=== PATIENT | female | born 1970 | race Caucasian/White ===

== ENCOUNTER → 2017-09-04 | Outpatient (CLI) | payer BC, OTHER ==
[~2017-09-04] MED LIST: CHON400C PO; CYCL1DRO OP; FEXO-142 PO; OMG1KC PO
--- NOTE | 2017-09-04 16:33 | Diagnostic Imaging Report ---
INDICATION: Pelvic pain and irregular menses. TECHNIQUE: Transabdominal and transvaginal pelvic sonography was performed. FINDINGS: The uterus measures 7.3 x 5.6 x 3.6 cm. The endometrium is 7 mm in thickness. No myometrial mass is identified. The ovaries are not visualized due to overlying bowel gas. No adnexal mass or free fluid is seen. IMPRESSION: Nonvisualized ovaries. The study is otherwise unremarkable. Dictated by: Dictated on workstation # [id number]
== END ==
LOC: RAD 15:51
PROVIDERS: ATTEND Nurse Practitioner
DX: N92.6 Irregular menstruation, unspecified (principal)
CPT/HCPCS: 76830; 76856

== ENCOUNTER 2018-08-20 06:20 | Outpatient (CLI) | payer BC ==
[~2018-08-20] VITALS: Ht 185.4 cm; Wt 113.4 kg
[2018-08-20] MEDS ORDERED: ZOLP6.252 PO (12:52)
[2018-08-20] MEDS ORDERED: OMG1KC PO (12:52)
[2018-08-20] MEDS ORDERED: FEXO1TAB40 PO (12:52)
[2018-08-20] MEDS ORDERED: BUPR-168 PO (12:52)
[2018-08-20] MEDS ORDERED: CART1TAB5 PO (12:52)
== END 2018-08-20 12:56 | disposition home or self-care (01) ==
LOC: PREOP 06:20
PROVIDERS: ATTEND Podiatrist Foot Surgery
DX: Z01.818 Encounter for other preprocedural examination (principal)

== ENCOUNTER 2018-08-23 05:50 | Day surgery (SDC) | payer BC ==
[~2018-08-23] VITALS: Ht 185.4 cm; Wt 113.4 kg
[~2018-08-23 05:50] MED LIST changes: +BUPR-168 PO; +CART1TAB5 PO; +FEXO1TAB40 PO; +ZOLP6.252 PO
[2018-08-23] MEDS ORDERED: LACTATED RINGERS 1,000 ML IV PRN (06:18)
[2018-08-23] MEDS ORDERED: ceFAZolin INJECTION 1,000 MG in NS (IVPB) 50 ML IV ONE (06:30)
[2018-08-23 06:50] VITALS: BP 118/85
[2018-08-23] MEDS ORDERED: fentaNYL INJECTION 100 MCG/2 ML AMP ONE (06:54)
[2018-08-23] MEDS ORDERED: MIDAZOLAM 2 MG/2 ML (VERSED) VIAL ONE (06:54)
[2018-08-23] MEDS ORDERED: BUPIVACAINE 0.25% 30 ML (SENSORCAINE) VIAL ONE (07:17)
[2018-08-23] MEDS ORDERED: MEPIVACAINE (CARBOCAINE) 2% 50 ML VIAL ONE (07:17)
--- NOTE | 2018-08-23 07:33 | Progress Note-Pre Operative ---
Pre-Operative Progress Note H&P Reviewed The H&P was reviewed, patient examined and no changes noted. Date Seen by Provider: Aug 23, 2018 Time Seen by Provider: 07:30 Date H&P Reviewed: Aug 23, 2018 Time H&P Reviewed: 07:31 Pre-Operative Diagnosis: plantar fascoitis right foot SAMIR JARRELL DPPiedad Aug 23, 2018 07:33
[2018-08-23] MEDS ORDERED: ceFAZolin INJECTION 1,000 MG ONE (07:44)
[2018-08-23] MEDS ORDERED: proPOfol 200 MG/20 ML (DIPRIVAN) VIAL IV ONE (07:53)
[2018-08-23] MEDS ORDERED: SEVOFLURANE (ULTANE) 15 ML INHAL SOLN ONE ×3 (07:53→08:45)
[2018-08-23] MEDS ORDERED: LIDOCAINE PF 2% 5 ML (XYLOCAINE) VIAL ONE (07:53)
[2018-08-23] MEDS ORDERED: ONDANSETRON 4 MG/2 ML (SDV) Z0FRAN ONE (07:53)
[2018-08-23] MEDS ORDERED: DEXAMETHASONE 10 MG/ML (DECADRON) 1 ML VIAL ONE (08:20)
[2018-08-23] MEDS ORDERED: LACTATED RINGERS 1,000 ML IV SCH (08:42)
--- NOTE | 2018-08-23 08:42 | Progress Note-Post Operative ---
Post-Operative Progess Note Surgeon (s)/Hatchery Worker (s) Surgeon SAMIR JARRELL DPM Hatchery Worker: NONE Pre-Operative Diagnosis plantar fascoitis right foot Post-Operative Diagnosis SAME Procedure & Operative Findings Date of Procedure 08/23/18 Procedure Performed/Findings EPF RIGHT FOOT Anesthesia Type GENERA;L WITH POST OP INFILTRATION Estimated Blood Loss Estimated blood loss (mL): MIN Specimens/Packing Specimens Removed NONE Packing: NONE SAMIR JARRELL DPM Aug 23, 2018 08:42
--- NOTE | 2018-08-23 08:42 | Discharge Instructions ---
Discharge Instructions Discharge Medications New, Converted or Re-Newed RX: RX Given to Pt/Family Patient Instructions Patient Instructions 1. Follow up in office in 2 weeks. 2. Diet as tolerated. 3. Activity as tolerated. Activity & Diet Activity as Tolerated: Yes SAMIR JARRELL DPM Aug 23, 2018 08:42
[2018-08-23] MEDS ORDERED: HYDROcodone/APAP 5 MG/325 MG (LORTAB) TAB PO PRN (08:45)
[2018-08-23] MEDS ORDERED: MEPERIDINE (DEMEROL) INJ 50 MG/ML IVP ONE (08:45)
[2018-08-23] MEDS ORDERED: morphine INJ 10 MG/ML 1ML (SYR OR VIAL) IVP ONE (08:45)
[2018-08-23] MEDS ORDERED: ONDANSETRON 4 MG/2 ML (SDV) Z0FRAN IVP PRN (08:45)
[2018-08-23] MEDS ORDERED: LACTATED RINGERS 1,000 ML IV ONE (08:45)
[2018-08-23] MEDS ORDERED: fentaNYL INJECTION 100 MCG/2 ML AMP IVP ONE (08:45)
[2018-08-23] MEDS ORDERED: ACHD5005 PO (08:49)
[2018-08-23 09:35] VITALS: BP 125/80
[2018-08-23] MEDS ORDERED: HYDROcodone/APAP 5 MG/325 MG (LORTAB) TAB ONE (09:42)
[2018-08-23 10:05] VITALS: BP 129/83
--- NOTE | 2018-08-23 10:08 | Anesthesia-General Post-Op ---
General Patient Condition Mental Status/LOC: Same as Preop Cardiovascular: Satisfactory Nausea/Vomiting: Absent Respiratory: Satisfactory Pain: Controlled Complications: Absent Post Op Complications Complications None Follow Up Care/Instructions Patient Instructions None needed. Anesthesia/Patient Condition Patient Condition Patient is doing well, no complaints, stable vital signs, no apparent adverse anesthesia problems. No complications reported per nursing. ARTURO FELDMAN CRNA Aug 23, 2018 10:08
[2018-08-23 10:35] VITALS: BP 128/87
[2018-08-23 11:20] VITALS: BP 128/87
--- NOTE | 2018-08-23 17:51 | OPERATIVE REPORT ---
DATE OF SERVICE: PREOPERATIVE DIAGNOSIS: Plantar fasciitis, right foot. POSTOPERATIVE DIAGNOSIS: Plantar fasciitis, right foot. NAME OF THE PROCEDURE: Endoscopic plantar fasciotomy, right foot. DESCRIPTION OF OPERATION: With the patient in supine position, having been affected by general anesthetic, sterile prep and drape were performed. A Jarett bandage was applied above the level of the right ankle. Appropriate measurements were taken and a 1 cm incision was made in the medial aspect of the right foot heel. A channeling instrument was used to form channel through and through medial to lateral with an exit wound fashioned at the point of exit of the channeling instrument. A cannula and trocar was introduced into the operative site. Medial and lateral margins of middle slip of the plantar fascia were identified and a hook knife was introduced through the cannula. The middle slip of the plantar fascia was incised transversely and released completely. This was confirmed with palpation on plantar aspect of the right foot. Cannula was removed. Incision was closed with one horizontal mattress suture of 4-0 Prolene medially and laterally. Tourniquet was released. Blood flow returned to the digits was within normal limits. Marcaine, Carbocaine and Decadron were introduced into the operative site postoperatively to control postoperative pain and swelling. The patient tolerated the procedure well with minimal blood loss, left the OR to PAR in apparent good condition with a corrective compressive wet to dry dressing and Adaptic. She was given Rx for Lortab 5 mg #21 every 4 to 6 hours p.r.n. foot pain and is to return to the office in 2 weeks for followup treatment. Job ID: [id number] DocumentID: [id number] Dictated Date: 08/23/2018 09:03:53 Career Agent Date: 08/23/2018 17:50:18 Dictated By: SAMIR JARRELL DPM
== END 2018-08-23 11:20 | disposition home or self-care (01) ==
LOC: SDC 05:50
PROVIDERS: ATTEND Podiatrist Foot Surgery
DX: M72.2 Plantar fascial fibromatosis (principal)
CPT/HCPCS: 84703; 87081

== ENCOUNTER 2019-03-21 11:00 | Outpatient (CLI) | payer BC ==
[~2019-03-21] VITALS: Ht 185.4 cm; Wt 113.4 kg
[~2019-03-21 11:00] MED LIST changes: +ACHD5005 PO; +PANT40TA2 PO; +VENL150C PO
== END 2019-03-21 12:26 | disposition home or self-care (01) ==
LOC: PREOP 11:00
PROVIDERS: ATTEND Surgery
DX: Z01.818 Encounter for other preprocedural examination (principal)

== ENCOUNTER 2019-03-25 09:26 | Day surgery (SDC) | payer BC ==
[~2019-03-25] VITALS: Ht 185.4 cm; Wt 113.4 kg
[2019-03-25] MEDS ORDERED: LACTATED RINGERS 1,000 ML IV ONE (09:30)
[2019-03-25] MEDS ORDERED: LACTATED RINGERS 1,000 ML IV STA (09:33)
[2019-03-25 09:35] VITALS: BP 138/95
[2019-03-25] MEDS ORDERED: HURRICAINE EXT TUBE (BENZOCAINE) XX PRN (09:45)
--- NOTE | 2019-03-25 09:58 | Progress Note-Pre Operative ---
Pre-Operative Progress Note H&P Reviewed The H&P was reviewed, patient examined and no changes noted. Date Seen by Provider: Mar 25, 2019 Time Seen by Provider: 09:58 Date H&P Reviewed: Mar 25, 2019 Time H&P Reviewed: 09:58 Pre-Operative Diagnosis: gerd, family history colon cancer INDRA ROY DO Mar 25, 2019 09:58
[2019-03-25] MEDS ORDERED: PROPOFOL INJECTION 50 ML IV ONE (10:06)
[2019-03-25] MEDS ORDERED: MIDAZOLAM 2 MG/2 ML (VERSED) VIAL ONE (10:06)
[2019-03-25] MEDS ORDERED: proPOfol 200 MG/20 ML (DIPRIVAN) VIAL IV ONE ×2 (10:45→11:01)
[2019-03-25 11:25] VITALS: BP 117/84
[2019-03-25] MEDS ORDERED: HURRICAINE EXT TUBE (BENZOCAINE) ONE (11:26)
[2019-03-25 11:30] VITALS: BP_SYST 120; BP_DIAS 80; BP_DIAS 81
[2019-03-25 12:00] VITALS: BP 119/87
[2019-03-25 12:08] VITALS: BP 119/87
--- NOTE | 2019-03-25 13:41 | Anesthesia-General Post-Op ---
MAC Patient Condition Mental Status/LOC: Same as Preop Cardiovascular: Satisfactory Nausea/Vomiting: Absent Respiratory: Satisfactory Pain: Controlled Complications: Absent Post Op Complications Complications None Follow Up Care/Instructions Patient Instructions None needed. Anesthesiology Discharge Order Discharge Order Patient is doing well, no complaints, stable vital signs, no apparent adverse anesthesia problems. No complications reported per nursing. SY PUGH CRNA Mar 25, 2019 13:41
--- NOTE | 2019-03-25 15:24 | Progress Note-Post Operative ---
Post-Operative Progess Note Surgeon (s)/Muck Hauler (s) Surgeon INDRA ROY DO Muck Hauler: na Pre-Operative Diagnosis gerd, family history colon cancer Post-Operative Diagnosis hiatal hernia, reflux esophagitis, colon polyp Procedure & Operative Findings Date of Procedure 03/25/19 Procedure Performed/Findings egd c biopsies colonoscopy c hot bx polypectomy transverse colon Anesthesia Type per mda Estimated Blood Loss Estimated blood loss (mL): none Specimens/Packing Specimens Removed antrum, ge, transverse colon INDRA ROY DO Mar 25, 2019 15:24
--- NOTE | 2019-03-25 23:39 | OPERATIVE REPORT ---
DATE OF SERVICE: 03/25/2019 PREOPERATIVE DIAGNOSES: Gastroesophageal reflux disease, family history of colon cancer. POSTOPERATIVE DIAGNOSES: Hiatal hernia, reflux esophagitis, colon polyp. PROCEDURE: EGD with biopsies, colonoscopy with hot biopsy polyp polypectomy transverse colon. ANESTHESIA: Per [facility]. SURGEON: Indra Cruz DO ESTIMATED BLOOD LOSS: None. COMPLICATIONS: None. SPECIMENS: Antrum GE junction and transverse colon polyp. INDICATIONS: The patient is a 48-year-old female with GERD and family history of colon cancer. She understands risks and benefits of procedure and wished to proceed with procedure. Consent was signed in the chart. DESCRIPTION OF PROCEDURE: The patient was taken to the endoscopy suite, placed in left lateral recumbent position. Timeout was performed. Scope was inserted in mouth, down the esophagus, stomach and into the duodenum without difficulty. There were no polyps, masses or ulcerations in the duodenum. Scope was slowly retracted back into the stomach where it was further insufflated. No polyps, masses or ulcerations. Scope was retroflexed noting a small hiatal hernia. Biopsy of the antrum was obtained. Scope was slowly retracted back into the distal esophagus, which had some slight erythematous changes suggestive of reflux esophagitis. Biopsy was obtained. No other pathology noted. Scope was slowly retracted back until completely removed noting no other pathology. Digital rectal exam was performed. There were no palpable polyps, mass or ulcerations. The scope was inserted in the rectum and advanced all the way to the cecum with minimal difficulty. Prep was adequate. Scope was then slowly retracted back. There were no polyps, masses or ulcerations in the cecum, ascending, and in the transverse colon, a small polyp was present, which hot biopsy polypectomy was performed. Scope was then continuously retracted back. No polyps, mass or ulcerations within the remainder of the transverse, descending, sigmoid and rectum. Once in the rectum, scope was retroflexed noting no other pathology. Scope was returned to its normal position, slowly withdrawn until completely removed. The patient tolerated procedure well without any complications. She was taken to recovery room in stable condition. RECOMMENDATIONS: The patient will follow up on biopsies in 2 weeks. We will make no changes from a medical standpoint at this point, await biopsy results. The patient will need repeat colonoscopy in 3 to 5 years. Any issues before that will be seen at that time. Job ID: [id number] DocumentID: [id number] Dictated Date: 03/25/2019 15:27:00 Test Preparation Tutor Date: 03/25/2019 23:38:37 Dictated By: INDRA CRUZ DO
== END 2019-03-25 12:10 | disposition home or self-care (01) ==
LOC: ENDO 09:26
PROVIDERS: ATTEND Surgery
DX: D12.3 Benign neoplasm of transverse colon (principal); K21.0 Gastro-esophageal reflux disease with esophagitis; K44.9 Diaphragmatic hernia without obstruction or gangrene; Z80.0 Family history of malignant neoplasm of digestive organs; Z87.440 Personal history of urinary (tract) infections; Z82.5 Family history of asthma and other chronic lower respiratory diseases; Z82.3 Family history of stroke; Z82.49 Family history of ischemic heart disease and other diseases of the circulatory system; Z80.3 Family history of malignant neoplasm of breast; E66.9 Obesity, unspecified; Z68.36 Body mass index [BMI] 36.0-36.9, adult
CPT/HCPCS: 84703

== ENCOUNTER 2023-04-11 05:34 | Outpatient (CLI) | payer BC ==
[~2023-04-11] VITALS: Ht 185.4 cm; Wt 103.4 kg
[~2023-04-11 05:34] MED LIST changes: -VENL150C PO; +VENL150C3 PO
[2023-04-16] MEDS ORDERED: HYDR25TA4 PO (13:34)
[2023-04-16] MEDS ORDERED: MULT-1136 PO (13:34)
[2023-04-16] MEDS ORDERED: HYDR200T71 PO (13:34)
[2023-04-16] MEDS ORDERED: TIZA-186 PO (13:34)
[2023-04-16] MEDS ORDERED: NITR100C PO (13:34)
[2023-04-16] MEDS ORDERED: DULO60CA59 PO (13:34)
[2023-04-16] MEDS ORDERED: GABA-486 PO (13:34)
[2023-04-16] MEDS ORDERED: PRAV10TA PO (13:34)
== END 2023-04-16 13:40 | disposition home or self-care (01) ==
LOC: PREOP 05:34
PROVIDERS: ATTEND Surgery
DX: Z01.818 Encounter for other preprocedural examination (principal)

== ENCOUNTER 2023-04-24 07:23 | Day surgery (SDC) | payer BC ==
[~2023-04-24] VITALS: Ht 185.4 cm; Wt 103.4 kg
[~2023-04-24 07:23] MED LIST changes: +DULO60CA59 PO; +GABA-486 PO; +HYDR200T71 PO; +HYDR25TA4 PO; +MULT-1136 PO; +NITR100C PO; +PRAV10TA PO; +TIZA-186 PO
[2023-04-24] MEDS ORDERED: LACTATED RINGERS 1,000 ML 1,000 ML IV STA (07:29)
[2023-04-24 07:40] VITALS: BP 125/79
--- NOTE | 2023-04-24 09:11 | Anesthesia-General Post-Op ---
MAC Patient Condition Mental Status/LOC: Same as Preop Cardiovascular: Satisfactory Nausea/Vomiting: Absent Respiratory: Satisfactory Pain: Controlled Complications: Absent Post Op Complications Complications None Follow Up Care/Instructions Patient Instructions None needed. Anesthesiology Discharge Order Discharge Order Patient is doing well, no complaints, stable vital signs, no apparent adverse anesthesia problems. No complications reported per nursing. ALISSON SERRANO CRNA Apr 24, 2023 09:11
--- NOTE | 2023-04-24 09:13 | Progress Note-Post Operative ---
Post-Operative Progess Note Surgeon (s)/Care Transition Mgr (s) Surgeon INDRA ROY DO Care Transition Mgr: N/A Pre-Operative Diagnosis gerd, family history colon cancer Post-Operative Diagnosis Normal colon Procedure & Operative Findings Date of Procedure 04/24/23 Procedure Performed/Findings Colposcopy Anesthesia Type per DIRECTOR OF ROOMS Estimated Blood Loss Estimated blood loss (mL): None Specimens/Packing Specimens Removed None INDRA ROY DO Apr 24, 2023 09:13
--- NOTE | 2023-04-24 09:14 | Discharge Inst-Simple/Standard ---
Discharge Inst-Standard Patient Instructions/Follow Up Plan of Care/Instructions/FU: 2 weeks Anthony Activity as Tolerated: Yes Discharge Diet: Regular Diet INDRA ROY DO Apr 24, 2023 09:14
[2023-04-24 09:15] VITALS: BP 97/61
[2023-04-24 09:40] VITALS: BP 97/61
--- NOTE | 2023-04-24 15:38 | OPERATIVE REPORT ---
DATE OF SERVICE: 04/24/2023 PREOPERATIVE DIAGNOSIS: Family history of colon cancer. POSTOPERATIVE DIAGNOSIS: Normal colon. PROCEDURE: Colonoscopy. SURGEON: Indra Cruz DO ANESTHESIA: Per [facility]. ESTIMATED BLOOD LOSS: None. COMPLICATIONS: None. INDICATIONS: The patient is a 52-year-old female with family history of colon cancer. She understands risks and benefits of procedure and wished to proceed. Consent was signed in the chart. DESCRIPTION OF PROCEDURE: The patient was taken to endoscopy suite, placed in left lateral recumbent position. Timeout was performed. Digital rectal exam was performed. No palpable polyps, masses or ulcerations. Scope was inserted in the rectum and advanced all the way to the cecum with minimal difficulty. Prep was adequate. Irrigation and suction was used. Scope was then slowly retracted back. No polyps, masses or ulcerations in the cecum, ascending, transverse, descending, sigmoid colon. Once in the rectum, scope was retroflexed noting no other pathology. Scope was returned to its normal position, slowly withdrawn until completely removed. The patient tolerated the procedure well with no complications, taken to recovery room in stable condition. RECOMMENDATIONS: The patient will repeat colonoscopy in 5 years. Any issues before that, she will be seen at that time. Job ID: [id number] DocumentID: [id number] Dictated Date: 04/24/2023 09:12:20 Medical Coding Instructor Date: 04/24/2023 15:36:00 Dictated By: INDRA CRUZ DO
== END 2023-04-24 09:55 | disposition home or self-care (01) ==
LOC: ENDO 07:23
PROVIDERS: ATTEND Surgery
DX: Z12.11 Encounter for screening for malignant neoplasm of colon (principal); E66.9 Obesity, unspecified; Z86.010 Personal history of colon polyps; Z80.0 Family history of malignant neoplasm of digestive organs; Z68.30 Body mass index [BMI] 30.0-30.9, adult
CPT/HCPCS: 84703